=== PATIENT | female | born 1960 | race Caucasian/White ===

== ENCOUNTER 2017-04-04 08:39 | Emergency (ER) | payer OTHER ==
[2017-04-04 08:53] VITALS: BP 138/88
[2017-04-04] MEDS ORDERED: Ibuprofen TAB* 600 MG PO ONE (09:13)
[2017-04-04] MEDS ORDERED: Fluorescein Sodium TOPICAL* 1 MG TEST OPHTHALMIC ONE (09:13)
[2017-04-04] MEDS ORDERED: Fluorescein Sod TOPICAL 0.6* 0.6 MG TEST OPHTHALMIC ONE (09:56)
--- NOTE | 2017-04-22 07:12 | UC ---
Eye Complaint HPI - HPI Summary HPI Summary: 57 yo male with r>l eye redness and itching x days no fb sensation no pain or photophobia no URI symptoms - History of Current Complaint Chief Complaint: UCEye Stated Complaint: EYE COMPLAINT Time Seen by Provider: 04/04/17 08:57 Hx Obtained From: Patient Onset/Duration: Gradual Onset, Lasting Days Timing: Constant Pain Intensity: 0 Pain Scale Used: 0-10 Numeric Location of Injury: Conjunctiva Alleviating Factor(s): Nothing Associated Signs And Symptoms: Positive: Negative - Allergies/Home Medications Allergies/Adverse Reactions: Allergies Allergy/AdvReac Type Severity Reaction Status Date / Time No Known Allergies Allergy Verified 04/04/17 08:53 Home Medications: Home Medications Multiple Vitamins W/ Minerals [Multivitamin Adults] 1 tab PO DAILY 04/04/17 [ History Confirmed 04/04/17] PMH/Surg Hx/FS Hx/Imm Hx Previously Healthy: Yes - Surgical History Surgical History: Yes Surgery Procedure, Year, and Place: C section x2 - Family History Known Family History: Positive: Hypertension - Social History Alcohol Use: Rare Substance Use Type: None Smoking Status (MU): Never Smoked Tobacco Review of Systems Constitutional: Negative Skin: Negative Eyes: Eye Redness ENT: Negative Respiratory: Negative Cardiovascular: Negative Gastrointestinal: Negative Genitourinary: Negative Motor: Negative Neurovascular: Negative Musculoskeletal: Negative Neurological: Negative Psychological: Negative Is Patient Immunocompromised?: No All Other Systems Reviewed And Are Negative: Yes Physical Exam Triage Information Reviewed: Yes Appearance: Well-Appearing, No Pain Distress, Well-Nourished Vital Signs: Initial Vital Signs Temp 98.1 F 04/04/17 08:46 Pulse 75 04/04/17 08:46 Resp 18 04/04/17 08:46 BP 138/88 04/04/17 08:46 Pulse Ox 98 04/04/17 08:46 Eye Exam: Normal Eyes: Positive: Conjunctiva Inflamed - R>L. Negative: Discharge ENT: Positive: Hearing grossly normal. Negative: Nasal congestion, Nasal drainage, Trismus, Muffled voice, Hoarse voice Neck: Positive: Supple Respiratory: Positive: Lungs clear, Normal breath sounds Cardiovascular: Positive: RRR, No Murmur Musculoskeletal: Positive: ROM Intact, No Edema Neurological: Positive: Alert Psychological Exam: Normal Skin Exam: Normal Eye Complaint Course/Dx - Differential Dx/Diagnosis Provider Diagnoses: allergic conjunctivitis Discharge - Discharge Plan Condition: Stable Disposition: HOME Patient Education Materials: Allergies (ED), Conjunctivitis (ED) Referrals: Jean Carlos Pacheco MD [Primary Care Provider] - If Needed Additional Instructions: I suspect allergic symptoms cool compresses ZADITOR EYE DROPS (otc) benadryl 25 mg 1-2 4x day recheck for worsening symptoms recheck in 2 days if not improved don't apply anything (creams etc) near your eyes
== END 2017-04-04 10:20 | disposition home or self-care (01) ==
LOC: UCEAST 08:39
DX: H10.13 Acute atopic conjunctivitis, bilateral (principal)
CPT/HCPCS: 99212; A9270-GY; G0463